=== PATIENT | female | born 1960 | race African-American/Black ===

== ENCOUNTER 2024-08-04 06:38 | Emergency (ER) | payer MEDICAID ==
[~2024-08-04] VITALS: Ht 170.2 cm; Wt 72.0 kg
[~2024-08-04 06:38] MED LIST: LEVE500T98 MT
[2024-08-04 06:47] VITALS: O2SAT 99
[2024-08-04 07:58] VITALS: BP 133/88; PULSE 80; RESP 16; TEMP 36.78072; O2SAT 99
[2024-08-04] MEDS: LEVETIRACETAM 500MG TABLET PO NR (08:31)
== END 2024-08-04 09:38 | disposition home or self-care (01) ==
LOC: ER 06:38
DX: R56.9 Unspecified convulsions (principal); I10 Essential (primary) hypertension; F14.10 Cocaine abuse, uncomplicated; Z86.73 Personal history of transient ischemic attack (TIA), and cerebral infarction without residual deficits
CPT/HCPCS: 99284